=== PATIENT | male | born 1960 | race Caucasian/White ===

== ENCOUNTER → 2020-09-13 | Outpatient (CLI) | payer OTHER ==
--- NOTE | 2020-09-13 17:37 | CONS ---
CONSULTATION DATE OF SERVICE: 09/13/2020. INDICATIONS: A 60-year-old gentleman has been evaluated in [facility] for obstructive sleep apnea- hypopnea syndrome. HISTORY OF PRESENT ILLNESS/SLEEP WAKE EVALUATION: The patient had been diagnosed with obstructive sleep apnea in November of 2019 at another institution, then he received his CPAP unit and he continues to use his CPAP equipment since that time. His sleep schedule is from 10 p.m. to 6 a.m. on weekdays and from 10:30 p.m. to 7:30 a.m. on weekends. No problems with falling asleep. No TV in bedroom. I checked his CPAP unit, pressure is 18 cm of water, usage is 30/30 nights for more than 4 hours with average usage is 6.1 hours per night. Leak is 12 L/minute which is mild. Apnea-hypopnea index is only 0.3, absolutely perfect. I checked also for the 6 months compliance, it is 176/180 nights for more than 4 hours, which is again indicating great compliance. The patient is using a full face white ____ large size mask. He sometimes feels that there is a leak from his mask. The patient wakes up from sleep once with nocturia. No history of hypnagogic hallucinations, sleep paralysis or cataplexy. [place] Sleepiness Scale is 10, which is borderline. PAST MEDICAL HISTORY: Positive for hypertension, hypothyroidism, allergies. PAST SURGICAL HISTORY: Appendectomy, bilateral knee arthroscopic surgery. MEDICATIONS: Hydralazine 2 mg once a day, enalapril 10 mg 3 times a day, levothyroxine 75 mcg once a day, Triamterene Dyazide 3.5-25 5 times per week, montelukast 10 mg as needed. FAMILY HISTORY: Cancer, stroke last month, heart problems. REVIEW OF SYSTEMS: Awakenings from sleep. PHYSICAL EXAMINATION: GENERAL: gentleman without distress. VITAL SIGNS: BP 161/101, HR 104, RR 15, height 5 feet 11 inches, weight 292, body mass index 40.7, temperature 98.0, oxygen saturation at room air 97%. Oropharynx low position of soft palate. NECK is wide; 18 inches in circumference. LUNGS: Clear to percussion and to auscultation. Good air exchange. No wheezing or rhonchi. HEART: S1, S2 regular. No murmurs, gallops, or rubs. ABDOMEN: Soft and nontender. Bowel sounds are present. No organomegaly appreciated. Obese. EXTREMITIES: No clubbing or cyanosis. ENTRY LEVEL RECEPTIONIST: Awake, alert, and oriented X3. Cranial nerves 2 to 7 intact. There is no fasciculation or atrophy. noted. No focal deficits observed. IMPRESSION: 1. Obstructive sleep apnea-hypopnea syndrome diagnosed in November 2019 in another institution. The patient demonstrated great compliance with CPAP treatment, benefitting from treatment, normal respiration on CPAP. 2. Low position of soft palate, wide neck. 3. Obesity BMI 40.7. 4. Hypertension. 5. Hypothyroidism. 6. Allergy. 7. Status post bilateral knee arthroscopic surgery. 8. Status post appendectomy. 9. 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 PLAN: 1. Continue usage of CPAP every night for the whole night. 2. For more comfort for the patient I changed the CPAP unit to automatic regimen with range of pressure of 5-18. 3. Losing weight. 4. Sleep hygiene with regular time in bed for at least 7.5 to 8 hours. 5. Prescription for all necessary CPAP supplies including 12 full face mask, tube tip filters. 6. Precautions related to driving. No driving if feeling sleepiness. Patient is aware about civil and criminal liability for unsafe driving. 7. We will get results of sleep study, which was done previously in another institution. 8. Follow-up visit in 6 months or earlier if patient has any problems. Thank you very much for referring this patient for consultation. Chavo Dawson MD, PhD, FAASM Diplomat of [place] [employer] Sleep Medicine Board of [place] [employer] [facility] MMODL / IJN: [id number] /
== END ==
LOC: SLEEP 14:16
PROVIDERS: ATTEND Internal Medicine
DX: G47.33 Obstructive sleep apnea (adult) (pediatric) (principal); E66.9 Obesity, unspecified; I10 Essential (primary) hypertension; E03.9 Hypothyroidism, unspecified; Z68.41 Body mass index [BMI] 40.0-44.9, adult; T78.40XA Allergy, unspecified, initial encounter; Z79.899 Other long term (current) drug therapy; Z96.653 Presence of artificial knee joint, bilateral
CPT/HCPCS: 99202

== ENCOUNTER 2021-02-05 10:04 | Day surgery (SDC) | payer OTHER ==
[2021-02-01 14:37] VITALS: BMI 38.2
[~2021-02-05 10:04] MED LIST: SODIUM CHLORIDE 0.9% 1,000 ML IV SCH
[2021-02-05 10:59] VITALS: RESP 16; TEMP 97.2
[2021-02-05 11:47] LABS: African American GFR (CKD) >90 (>60 ml/min/1.73 sqM); Anion Gap 7 mmol/L; Blood Urea Nitrogen 23 mg/dL (9-20); Calcium 9.1 mg/dL (8.4-10.2); Carbon Dioxide 27 mmol/L (22-30); Chloride 105 mmol/L (98-107); Glucose 92 mg/dL (74-99); Non-African American GFR(CKD) 86 (>60 ml/min/1.73 sqM); Potassium 3.9 mmol/L (3.5-5.1); Sodium 139 mmol/L (137-145)
[2021-02-05] MEDS ORDERED: PROPOFOL 10 MG/ML 20 ML VIAL IV ONE (12:14)
[2021-02-05] MEDS ORDERED: LIDOCAINE 1% INJ 10MG/ML (20 ML MDV) ONE (12:14)
--- NOTE | 2021-02-05 14:17 | PCN ---
PROCEDURE NOTE CARDIOVERSION: DATE OF SERVICE: 02/05/2021 PERFORMING PHYSICIAN: Sterling Mejía M.D. PROCEDURE PERFORMED: Successful cardioversion of atrial fibrillation to normal sinus mechanism using 150 joules on second attempt. INDICATION: Persistent atrial fibrillation. COMPLICATIONS: None. LEVEL OF SEDATION: Sedation was performed using propofol with AUCTIONEER ART in the room. PROCEDURE DESCRIPTION: After obtaining informed consent, the patient was brought to the cardioversion/recovery suite. Pulse oximetry and heart rate monitors were attached to the patient. Subsequently the patient was sedated using propofol. Then cardioversion was attempted initially using 75 joules and subsequently using 150 joules, successfully cardioverting the patient to normal sinus mechanism. The procedure was completed without any complication. CONCLUSION: Successful cardioversion of atrial fibrillation to normal sinus mechanism using 150 joules on second attempt. MMODL / IJN: [id number] /
[2021-02-05 17:00] VITALS: BP 153/77; PULSE 84
== END 2021-02-05 14:40 | disposition home or self-care (01) ==
LOC: CATHCVL 10:04
PROVIDERS: ATTEND Internal Medicine Interventional Cardiology
DX: I48.19 Other persistent atrial fibrillation (principal); I10 Essential (primary) hypertension; G47.33 Obstructive sleep apnea (adult) (pediatric); J45.909 Unspecified asthma, uncomplicated; E66.9 Obesity, unspecified; I49.5 Sick sinus syndrome; I34.0 Nonrheumatic mitral (valve) insufficiency; E07.9 Disorder of thyroid, unspecified; Z68.41 Body mass index [BMI] 40.0-44.9, adult; Z20.822 Contact with and (suspected) exposure to COVID-19; Z79.899 Other long term (current) drug therapy
CPT/HCPCS: 92960; 80048; 87635; J2001; J2704

== ENCOUNTER 2021-02-12 07:11 | Day surgery (SDC) | payer OTHER ==
[2021-02-09 09:11] VITALS: BMI 38.9
[~2021-02-12 07:11] MED LIST changes: +ALPRAZolam 0.25 MG TAB PO PRN; +ALPRAZolam 0.5 MG TAB PO PRN; +ASPIRIN 325 MG TAB PO STA; +HEPARIN SODIUM,PORCINE 10,000 UNIT in SODIUM CHLORIDE 0.9% 1,000 ML IRRIGATION PRN; +HEPARIN SODIUM,PORCINE 2,500 UNIT in SODIUM CHLORIDE 0.9% 250 ML IRRIGATION PRN; +NITROGLYCERIN SL TABS 0.4 MG TAB SUBLINGUAL PRN; -SODIUM CHLORIDE 0.9% 1,000 ML IV SCH
[2021-02-12] MEDS: SODIUM CHLORIDE 0.9% 1,000 ML in EMPTY BAG 1 BAG IV SCH ×3 (07:42→20:42)
[2021-02-12 07:47] LABS: Basophils # (A) 0.1 k/uL (0-0.2); Basophils % (A) 1 %; Eosinophils # (A) 0.3 k/uL (0-0.7); Eosinophils % (A) 4 %; HCT 49.9 % (39.0-53.0); HGB 16.4 gm/dL (13.0-17.5); Lymphocytes # (A) 1.7 k/uL (1.0-4.8); Lymphocytes % (A) 19 %; MCH 28.9 pg (25.0-35.0); MCHC 32.9 g/dL (31.0-37.0); MCV 87.8 fL (80.0-100.0); Mean Platelet Volume 7.8; Monocytes # (A) 0.7 k/uL (0-1.0); Monocytes % (A) 8 %; Neutrophils # (A) 5.5 k/uL (1.3-7.7); Neutrophils % (A) 64 %; Platelet Count 309 k/uL (150-450); RBC 5.69 m/uL (4.30-5.90); RDW 15.2 % (11.5-15.5); WBC 8.6 k/uL (3.8-10.6)
[2021-02-12] MEDS ORDERED: LIDOCAINE 1% INJ 10MG/ML (20 ML MDV) ONE (08:58)
[2021-02-12] MEDS ORDERED: VERAPAMIL 2.5 MG/ML 2 ML AMP ONE (08:58)
[2021-02-12] MEDS ORDERED: HEPARIN SODIUM 1,000 UN/ML (10ML VL) ONE (09:03)
[2021-02-12] MEDS ORDERED: MIDAZOLAM 2 MG/2 ML VIAL IV ONE (09:23)
[2021-02-12] MEDS ORDERED: LIDOCAINE 1% INJ 10MG/ML (20 ML MDV) SQ ONE (09:25)
[2021-02-12] MEDS ORDERED: VERAPAMIL SYRINGE (5 MG/10 ML) INTRAARTER ONE (09:28)
[2021-02-12] MEDS ORDERED: NITROGLYCERIN 1000MCG/10ML SYRINGE INTRACORON ONE (09:31)
[2021-02-12] MEDS ORDERED: CLOPIDOGREL 75 MG TAB ONE (09:45)
[2021-02-12] MEDS ORDERED: CLOPIDOGREL 75 MG TAB PO ONE (09:46)
[2021-02-12] MEDS ORDERED: IOPAMIDOL-370 125ML BTL INJ ONE (09:49)
[2021-02-12] MEDS ORDERED: RX INFO: IV CONTRAST WAS GIVEN 1 EACH MISC MISCELLANE PRN (09:57)
[2021-02-12] MEDS ORDERED: MAG HYDROX/AL HYDROX/SIMETH 30 ML CUP PO PRN (09:57)
[2021-02-12] MEDS ORDERED: NITROGLYCERIN SL TABS 0.4 MG TAB SUBLINGUAL PRN (09:57)
[2021-02-12] MEDS ORDERED: ATROPINE SULFATE 0.1 MG/ML 10ML SYRINGE IV PRN (09:57)
[2021-02-12] MEDS ORDERED: ZOLPIDEM 5 MG TAB PO PRN (09:57)
[2021-02-12] MEDS ORDERED: SODIUM CHLORIDE 0.9% 1,000 ML IV SCH (10:00)
--- NOTE | 2021-02-12 11:49 | CC ---
CARDIAC CATHETERIZATION REPORT DATE OF SERVICE: 02/12/2021 PERFORMING PHYSICIAN: Sterling Mejía M.D. PROCEDURES PERFORMED: 1. Selective right and left coronary angiogram. 2. Left heart catheterization. 3. Successful stenting of the proximal right coronary artery using a 3.25 x 18 mm Xience drug-eluting stent which was post-dilated using a 3.5 mm NC balloon with excellent angiographic results. INDICATION: This is a 60-year-old gentleman who was diagnosed recently with atrial fibrillation and was symptomatic. He underwent myocardial perfusion imaging stress test that was abnormal, showing reversibility, and in the light of that a heart catheterization was advised. APPROACH: Right radial artery. COMPLICATIONS: None. LEVEL OF SEDATION: Moderate, with sedation length of 26 minutes. PROCEDURE DESCRIPTION: After obtaining informed consent, the patient was brought to the cardiac slabbing machine operator. The right radial artery was cannulated using micropuncture technique. The micropuncture wire passed easily. Then I placed a 6-Kyrgyz sheath in the right radial artery. I gave the patient 2 mg of verapamil IA and a total of 10,000 units of heparin IV given intermittently with continuous ACT monitoring throughout the procedure. After that I did intervene on the RCA. Please see separate paragraph for that. SELECTIVE CORONARY ANGIOGRAM: 1. The RCA is a large-caliber vessel. It is a dominant vessel. The RCA proximally has a lesion that appeared to be in the range of 70% to 80% just distal to the bifurcation of the conus branch. The mid and distal RCA appeared to have mild disease only. 2. The left main has mild disease only. It bifurcates into LCX and LAD. 3. The LCX is a large-caliber vessel. It is a nondominant vessel. The LCX has mild diffuse disease. It gives rise to a large OM branch which appeared to have mild disease only as well. 4. The LAD. The proximal LAD appeared to have a lesion in the range of 40% to 50%. It was identified mostly on the MIRAMONTES caudal view. The LAD proximally gives rise to a large diagonal branch which seems to be angiographically normal. The mid and distal LAD appeared to have mild disease only. 5. HEMODYNAMICS: The LVEDP was 9 mmHg without significant gradient across the aortic valve. PERCUTANEOUS CORONARY INTERVENTION OF THE RIGHT CORONARY ARTERY: Anticoagulation was initiated and completed with heparin with continuous ACT monitoring. I did engage the RCA using JR4 guide. I did wire it using a run-through wire. Direct stenting was performed using a 3.25 x 18 mm Xience CHARLES where the stent was positioned under fluoroscopic guidance and deployed under 14 atmospheres for 20 seconds. Post- dilatation was performed using a 3.5 x 12 mm NC balloon. Final angiogram showed excellent angiographic results. The procedure was completed without any complication. CONCLUSION: 1. Severe disease involving the proximal right coronary artery. Successful stenting of the RCA was performed. 2. Intermediate disease involving the proximal LAD was identified on the MIRAMONTES caudal view. 3. Normal left-sided filling pressure. POST-PROCEDURE MANAGEMENT: Medical treatment and aggressive cholesterol control cardioversion. MMODL / IJN: [id number] /
[2021-02-12] MEDS: carvediloL 3.125 MG TAB PO SCH ×2 (12:00→20:41)
[2021-02-12] MEDS: TRIAMTERENE-HCTZ 37.5-25MG 1 EACH TAB PO SCH (12:00)
[2021-02-12] MEDS: lisinopriL 20 MG TAB PO SCH (20:20)
[2021-02-12] MEDS ORDERED: ATORVASTATIN 80 MG TAB PO SCH (21:00)
[2021-02-12] MEDS ORDERED: carvediloL 3.125 MG TAB PO SCH (21:00)
[2021-02-12] MEDS ORDERED: LEVOTHYROXINE 75 MCG TAB PO SCH (21:00)
[2021-02-12] MEDS ORDERED: DOXAZOSIN 1 MG TAB PO SCH (21:00)
[2021-02-13] MEDS: SODIUM CHLORIDE 0.9% 1,000 ML in EMPTY BAG 1 BAG IV SCH (04:14)
[2021-02-13 07:10] LABS: African American GFR (CKD) >90 (>60 ml/min/1.73 sqM); Non-African American GFR(CKD) 88 (>60 ml/min/1.73 sqM)
[2021-02-13 08:34] VITALS: BP 160/90; PULSE 59; RESP 18; TEMP 97.7
[2021-02-13] MEDS: lisinopriL 20 MG TAB PO SCH (08:37)
[2021-02-13] MEDS: TRIAMTERENE-HCTZ 37.5-25MG 1 EACH TAB PO SCH (08:38)
[2021-02-13] MEDS: carvediloL 3.125 MG TAB PO SCH (08:38)
[2021-02-13] MEDS ORDERED: CLOPIDOGREL 75 MG TAB PO SCH (09:00)
[2021-02-13] MEDS ORDERED: TRIAMTERENE-HCTZ 37.5-25MG 1 EACH TAB PO SCH (09:00)
--- NOTE | 2021-02-13 10:41 | P.DS ---
Providers Date of admission: February 122020 Attending physician: Sterling Mejía Consults: 02/12/21 09:57 Consult Physician Routine Consulting Provider: [facility] Consult Reason/Comments: Post Interventional patient Do you want consulting provider notified?: Already Contacted Primary care physician: Zhanna Salinas [facility] Course: This is a 60-year-old gentleman who was experiencing symptoms of shortness of breath and underwent myocardial perfusion imaging stress test and that came in to be abnormal showing reversibility. In the light of that the heart catheterization was advised. The heart catheterization revealed severe disease involving the RCA. He underwent successful stenting of the RCA with a good angiographic results. He was seen this morning. The right radial site is soft and nontender and without any bruises. The patient is going to be discharged home on triple therapy with decreasing the dose of. I'm going to follow-up with him in a week. Plan - Discharge Summary Discharge Rx Participant: No New Discharge Prescriptions: New Aspirin 81 mg PO DAILY #90 tab Atorvastatin [Lipitor] 80 mg PO DAILY #90 tab Clopidogrel Bisulfate [Plavix] 75 mg PO DAILY #90 tab Continue Enalapril [Vasotec] 20 mg PO BID Terazosin [Hytrin] 1 mg PO HS Levothyroxine Sodium [Synthroid] 75 mcg PO HS Triamterene/Hydrochlorothiazid [Triamterene-Hctz 37.5-25 mg Tb] 1 each PO DAILY Carvedilol [Coreg] 3.125 mg PO BID Changed Apixaban [Eliquis] 2.5 mg PO BID #0 Discharge Medication List Carvedilol [Coreg] 3.125 mg PO BID 02/01/21 [History] Enalapril [Vasotec] 20 mg PO BID 02/01/21 [History] Levothyroxine Sodium [Synthroid] 75 mcg PO HS 02/01/21 [History] Terazosin [Hytrin] 1 mg PO HS 02/01/21 [History] Triamterene/Hydrochlorothiazid [Triamterene-Hctz 37.5-25 mg Tb] 1 each PO DAILY 02/01/21 [History] Apixaban [Eliquis] 2.5 mg PO BID #0 02/13/21 [Rx] Aspirin 81 mg PO DAILY #90 tab 02/13/21 [Rx] Atorvastatin [Lipitor] 80 mg PO DAILY #90 tab 02/13/21 [Rx] Clopidogrel Bisulfate [Plavix] 75 mg PO DAILY #90 tab 02/13/21 [Rx] Follow up Appointment(s)/Referral(s): Sterling Mejía MD [STAFF PHYSICIAN] - 1 Week (APPOINTMENT MADE ON January @ 4:15PM AT THE [facility] LOCATION) Patient Instructions/Handouts: After Radial Heart Catheterization (GEN), Procedural Sedation (ED) Activity/Diet/Wound Care/Special Instructions: *NO LIFTING, PUSHING, OR PULLING ANYTHING OVER 5 POUNDS FOR 5 DAYS *NO DRIVING FOR 3 DAYS *YOU CAN SHOWER TOMORROW BUT DO NOT SUBMERSE YOUR PUNCTURE SITE IN WATER FOR A FEW DAYS TO PREVENT INFECTION - SO NO TUB BATHS, POOLS, HOT TUBS, DISHES....ETC. *ANY SIGNS OF BLEEDING (HARDNESS, SWELLING, OR EXCESSIVE BRUISING) HOLD DIRECT PRESSURE ON YOUR PUNCTURE SITE AND COME TO THE NEAREST EMERGENCY ROOM TO GET YOUR PUNCTURE SITE LOOKED AT - DO NOT DRIVE YOURSELF! EITHER CALL EMS OR HAVE SOMEONE DRIVE YOU!
== END 2021-02-13 11:04 | disposition home or self-care (01) ==
LOC: CATHCVL 07:11 → 6NMEDSUR 15:00 → CATHCVL 02-13 11:04
PROVIDERS: ATTEND Internal Medicine Interventional Cardiology
DX: R94.39 Abnormal result of other cardiovascular function study (principal); I48.91 Unspecified atrial fibrillation; Z20.822 Contact with and (suspected) exposure to COVID-19
CPT/HCPCS: 93458; 82565; 85025; 87635; C9600; C1887; C1769; C1894; C1725; C1874; J2250; J2001; J1644 ×2; Q9967

== ENCOUNTER → 2021-02-26 | Outpatient (CLI) | payer OTHER ==
[2021-02-26 15:55] LABS: HCT 40.5 % (39.0-53.0); HGB 13.6 gm/dL (13.0-17.5); MCH 29.3 pg (25.0-35.0); MCHC 33.6 g/dL (31.0-37.0); MCV 87.1 fL (80.0-100.0); Mean Platelet Volume 8.5; Platelet Count 236 k/uL (150-450); RBC 4.65 m/uL (4.30-5.90); WBC 7.4 k/uL (3.8-10.6)
== END | disposition home or self-care (01) ==
LOC: LABPAT 14:27
PROVIDERS: ATTEND Internal Medicine Interventional Cardiology
DX: Z01.812 Encounter for preprocedural laboratory examination (principal); I48.11 Longstanding persistent atrial fibrillation
CPT/HCPCS: 36415; 80051; 82565; 84520; 85027

== ENCOUNTER → 2021-03-05 | Outpatient (CLI) | payer OTHER | END | disposition home or self-care (01) | LOC: LABPAT 08:41 | PROVIDERS: ATTEND Internal Medicine Interventional Cardiology | DX: Z20.822 Contact with and (suspected) exposure to COVID-19 (principal) | CPT/HCPCS: U0003; C9803 ==

== ENCOUNTER 2021-03-07 06:29 | Day surgery (SDC) | payer OTHER ==
[2021-02-28 11:31] VITALS: BMI 39.2
[~2021-03-07 06:29] MED LIST changes: -ALPRAZolam 0.25 MG TAB PO PRN; -ALPRAZolam 0.5 MG TAB PO PRN; -ASPIRIN 325 MG TAB PO STA; -HEPARIN SODIUM,PORCINE 10,000 UNIT in SODIUM CHLORIDE 0.9% 1,000 ML IRRIGATION PRN; -HEPARIN SODIUM,PORCINE 2,500 UNIT in SODIUM CHLORIDE 0.9% 250 ML IRRIGATION PRN; +LACTATED RINGERS 1,000 ML IV SCH; +LIDOCAINE 1% (10MG/ML) FOR IV START INTRADERMA PRN; -NITROGLYCERIN SL TABS 0.4 MG TAB SUBLINGUAL PRN; +SODIUM CHLORIDE 0.9% 1,000 ML IV SCH
[2021-03-07] MEDS ORDERED: SODIUM CHLORIDE 0.9% 500 ML 500 ML IV ONE (06:43)
[2021-03-07 07:01] VITALS: RESP 16; TEMP 98.2
[2021-03-07] MEDS ORDERED: PROPOFOL 10 MG/ML 20 ML VIAL IV ONE (07:41)
[2021-03-07 09:13] VITALS: PULSE 64
[2021-03-07 09:39] VITALS: BP 160/77
--- NOTE | 2021-03-07 11:21 | ECHOT ---
TRANSESOPHAGEAL ECHOCARDIOGRAM DATE OF SERVICE: 03/07/2021 PERFORMING PHYSICIAN: Sterling Mejía M.D. PROCEDURE PERFORMED: Transesophageal echocardiogram. INDICATION: Rule out left atrial appendage thrombus before cardioversion. COMPLICATIONS: None. LEVEL OF SEDATION: The procedure was performed using propofol with TRAINING PROJECT MANAGER in the room. PROCEDURE DESCRIPTION: After obtaining informed consent, the patient was brought to the recovery room. Pulse oximetry and heart rate monitors were attached to the patient. Subsequently the patient was turned into left lateral position. The transesophageal echocardiogram probe was advanced through the bite guard to the mid esophagus, where 2D echocardiogram images as well as color Doppler images of various cardiac structures were obtained. Particular attention was paid to the left atrial appendage. The procedure was completed without any complication. FINDINGS: The left ventricular dimension appeared to be within normal limits. The ejection fraction appeared to be mildly impaired with EF around 45%. The right ventricle appeared to be mildly dilated. The left atrium and right atrium are mildly dilated. Left atrial appendage appeared to be free from any thrombus. The interatrial septum appeared to have evidence of atrial septal defect, which seems to be a second atrial septal defect. The aortic valve is a trileaflet valve without stenosis with mild insufficiency. There was mild to moderate mitral regurgitation and mild to moderate tricuspid regurgitation seen. CONCLUSION: 1. Mildly impaired LV function with EF between 45% and 50%. 2. Mildly dilated right ventricle with normal function. 3. Trileaflet aortic valve without stenosis with mild insufficiency. 4. Thickened mitral valve leaflets with mild to moderate MR. 5. Mild to moderate tricuspid regurgitation. 6. Second atrial septal defect with evidence of [id number] shunt. 7. No evidence of pericardial effusion. MMODL / IJN: [id number] /
--- NOTE | 2021-03-07 11:30 | PCN ---
PROCEDURE NOTE CARDIOVERSION: DATE OF SERVICE: 03/07/2021 PERFORMING PHYSICIAN: Sterling Mejía M.D. PROCEDURE PERFORMED: Successful cardioversion of atrial fibrillation to normal sinus mechanism using 150 joules on first attempt. DESCRIPTION: After a transesophageal echocardiogram was performed and left atrial appendage thrombus was ruled out, we decided to pursue cardioversion. The patient cardioverted from atrial fibrillation to normal sinus mechanism using 150 joules on first attempt. MMODL / IJN: [id number] /
== END 2021-03-07 09:40 | disposition home or self-care (01) ==
LOC: CATHCVL 06:29
PROVIDERS: ATTEND Internal Medicine Interventional Cardiology
DX: I48.19 Other persistent atrial fibrillation (principal); I25.10 Atherosclerotic heart disease of native coronary artery without angina pectoris; I10 Essential (primary) hypertension; E78.5 Hyperlipidemia, unspecified; R94.39 Abnormal result of other cardiovascular function study; E66.9 Obesity, unspecified; Z68.39 Body mass index [BMI] 39.0-39.9, adult; G47.33 Obstructive sleep apnea (adult) (pediatric); Z95.5 Presence of coronary angioplasty implant and graft; Z79.01 Long term (current) use of anticoagulants; Z79.02 Long term (current) use of antithrombotics/antiplatelets; Z79.82 Long term (current) use of aspirin; Z79.890 Hormone replacement therapy; Z79.899 Other long term (current) drug therapy; E07.9 Disorder of thyroid, unspecified; Z90.49 Acquired absence of other specified parts of digestive tract; Z91.012 Allergy to eggs; Z91.011 Allergy to milk products; Z91.018 Allergy to other foods
CPT/HCPCS: 93312; 93320; 93325; 92960; J2704; 93005

== ENCOUNTER → 2021-03-15 | Outpatient (CLI) | payer OTHER ==
--- NOTE | 2021-03-15 14:56 | SFUN ---
SLEEP CENTER FOLLOW UP NOTE DATE OF SERVICE: 03/15/2021 61 -year-old gentleman has been followed in Sleep Center for treatment of obstructive sleep apnea-hypopnea syndrome. The patient continues to use his CPAP equipment every night for the whole night, sleeps well. Getting his CPAP supplies in time and changing his air filter once a month. I checked his CPAP unit. Range of the pressure 5-18, average pressure 17.7, usage 30/30 nights and 29/30 nights more than 4 hours, average 7.1 hours per night. Great compliance. Leak is 4 L/minute which is normal. Apnea-hypopnea index 0.5 which is perfect. [place] Sleepiness Scale today is 5, which is in normal range. MEDICATIONS: Amiodarone 100 mg once a day, Eliquis 2.5 mg 2 tablets a day, Lipitor 80 mg once a day, Plavix 75 mg once a day, Coreg 3.215 mg 2 tablets a day, enalapril 20 mg twice a day, terazosin 2 mg once a day. Triamterene hydrochlorothiazide once a day. PHYSICAL EXAMINATION: GENERAL: Patient in no distress. BP 161/88, HR 72, RR 16, weight 287.2 pounds, height 5 feet 11 inches, temperature 97.7, oxygen saturation at room air 98%. Oropharynx: Low position of soft palate. NECK: Supple, no JVD. Thyroid is not palpable. LUNGS: Clear to percussion and to auscultation. Good air exchange. No wheezing or rhonchi. HEART: S1, S2 regular. No murmurs, gallops, or rubs. ABDOMEN: Obese. Soft and nontender. Bowel sounds are present. No organomegaly appreciated. EXTREMITIES: No clubbing or cyanosis. REED OR WIND INSTRUMENT TUNER: Awake, alert, and oriented X3. Cranial nerves 2 to 7 intact. There is no fasciculation or atrophy. noted. No focal deficits observed. IMPRESSION: 1. Obstructive sleep apnea-hypopnea syndrome. Patient demonstrated practically 100% compliance with treatment. Normal respiration on CPAP, benefitting from treatment. 2. Obesity. 3. Hypertension. 4. Hypothyroidism. 5. Allergies. 6. Status post bilateral arthroscopic knee surgery. 7. Status post appendectomy. 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 Patient will continue to use PAP equipment every night for the whole night. 2. Sleep hygiene with regular time in bed for at least 7-1/2 to 8 hours. 3. Precautions related to driving. No driving if feeling sleepiness. Patient is aware about civil and criminal liability for unsafe driving and promised to follow recommendations. 4. I will maintain all necessary prescription for PAP supplies including mask, tube, filters. 5. Watching weight. 6. Follow-up visit in 6 months or earlier if patient has any problems. Thank you very much for allowing me to participate in management of your patient. Sincerely, Chavo Dawson MD, PhD, FAASM Diplomat of [place] [employer] Sleep Medicine Board of [place] [employer] Clean In Places Operator of [facility] MMODL / IJN: [id number] /
== END ==
LOC: SLEEP 13:03
PROVIDERS: ATTEND Internal Medicine
DX: G47.33 Obstructive sleep apnea (adult) (pediatric) (principal); E66.9 Obesity, unspecified; I10 Essential (primary) hypertension; E03.9 Hypothyroidism, unspecified; T78.40XD Allergy, unspecified, subsequent encounter; Z90.49 Acquired absence of other specified parts of digestive tract; Z98.890 Other specified postprocedural states; Z79.899 Other long term (current) drug therapy; Z91.011 Allergy to milk products; Z91.018 Allergy to other foods; Z91.012 Allergy to eggs

== ENCOUNTER → 2021-06-22 | Outpatient (CLI) | payer OTHER ==
[2021-06-22 14:53] LABS: ALT 33 U/L (10-49); AST 32 U/L (14-35); African American GFR (CKD) 77.8 (60.0-200.0); Albumin 4.4 g/dL (3.8-4.9); Albumin/Globulin Ratio 1.49 (1.60-3.17); Alkaline Phosphatase 71 U/L (41-126); BUN/Creat Ratio 13.71 Ratio (12.00-20.00); Blood Urea Nitrogen 15.9 mg/dL (9.0-27.0); Calcium 9.1 mg/dL (8.7-10.3); Chloride 102 mmol/L (96-109); Chol/HDL Ratio 1.91 Ratio; Creatine Kinase 425 U/L (35-257); Glucose 103 mg/dL (70-110); LDL Cholesterol,Calculated 28.1 mg/dL (0.0-131.0); Magnesium 2.9 mg/dL (1.5-2.4); Non-African American GFR(CKD) 67.1 (60.0-200.0); Potassium 4.2 mmol/L (3.5-5.5); Sodium 138 mmol/L (135-145); Total Protein 7.4 g/dL (6.2-8.2); VLDL Calculation 15.84 mg/dL (5.00-40.00)
== END | disposition home or self-care (01) ==
LOC: LABWHC1 08:52
PROVIDERS: ATTEND Family Medicine
DX: I10 Essential (primary) hypertension (principal); I48.0 Paroxysmal atrial fibrillation; E78.2 Mixed hyperlipidemia; E03.9 Hypothyroidism, unspecified; R73.03 Prediabetes
CPT/HCPCS: 36415; 80053; 80061; 82550; 83036; 83735; 84439; 84443

== ENCOUNTER → 2021-06-22 | Outpatient (CLI) | payer OTHER ==
[2021-06-22 14:31] LABS: Basophils # (A) 0.08 X 10*3/uL (0.00-0.10); Basophils % (A) 1.1 %; Eosinophils # (A) 0.19 X 10*3/uL (0.04-0.35); Eosinophils % (A) 2.7 %; HCT 42.6 % (39.6-50.0); HGB 13.6 g/dL (13.0-17.0); Immature Grans, Automated 0.3 %; Lymphocytes # (A) 1.11 X 10*3/uL (0.90-5.00); Lymphocytes % (A) 15.9 %; MCH 28.2 pg (27.0-32.0); MCHC 31.9 g/dL (32.0-37.0); MCV 88.2 fL (80.0-97.0); Monocytes # (A) 0.63 X 10*3/uL (0.20-1.00); NRBC Per 100 WBC 0 /100 WBCS (0.0-0.0); Neutrophils # (A) 4.94 X 10*3/uL (1.80-7.70); Platelet Count 258 X 10*3/uL (140-440); RBC 4.83 X 10*6/uL (4.40-5.60); RDW 14.6 % (11.5-14.5); WBC 6.97 X 10*3/uL (4.50-10.00)
[2021-06-22 14:34] LABS: Anion Gap 11.1 mmol/L (10.00-18.00); Blood Urea Nitrogen 15.7 mg/dL (9.0-27.0); Carbon Dioxide 26.3 mmol/L (20.0-27.5); Non-African American GFR(CKD) 70.8 (60.0-200.0); Potassium 4.2 mmol/L (3.5-5.5)
== END | disposition home or self-care (01) ==
LOC: LABPAT 08:48
PROVIDERS: ATTEND Internal Medicine Clinical Cardiac Electrophysiology
DX: Z01.812 Encounter for preprocedural laboratory examination (principal); I48.19 Other persistent atrial fibrillation
CPT/HCPCS: 80051; 82565; 84520; 85025

== ENCOUNTER 2021-07-02 11:08 | Day surgery (SDC) | payer OTHER ==
[2021-06-29 12:52] VITALS: BMI 38.0
[~2021-07-02 11:08] MED LIST changes: -LIDOCAINE 1% (10MG/ML) FOR IV START INTRADERMA PRN
[2021-07-02] MEDS ORDERED: ONDANSETRON 4 MG/2 ML VIAL ONE (13:31)
[2021-07-02] MEDS ORDERED: ePHEDrine 50 MG/ML 1 ML VIAL ONE (13:31)
[2021-07-02] MEDS ORDERED: ROCURONIUM 10 MG/ML (5 ML VIAL) IV ONE (13:31)
[2021-07-02] MEDS ORDERED: PROPOFOL 10 MG/ML 20 ML VIAL IV ONE (13:31)
[2021-07-02] MEDS ORDERED: MIDAZOLAM 2 MG/2 ML VIAL ONE (13:31)
[2021-07-02] MEDS ORDERED: LIDOCAINE 2% INJ 20 MG/ML (2 ML VIAL) ONE (13:31)
[2021-07-02] MEDS ORDERED: fentaNYL (PF) 50 MCG/ML 2 ML AMP ONE (13:31)
[2021-07-02] MEDS ORDERED: SUCCINYLCHOLINE CHLORIDE VIAL 200 MG/10 ML VIAL IV ONE (13:31)
[2021-07-02] MEDS ORDERED: GLYCOPYRROLATE 0.2 MG/ML 2 ML VIAL ONE (13:31)
[2021-07-02] MEDS ORDERED: NEOSTIGMINE 1 MG/ML 10 ML VIAL ONE (13:31)
[2021-07-02] MEDS ORDERED: ISOPROTERENOL 250 MCG/1.25 ML SYR IV ONE (13:31)
[2021-07-02] MEDS ORDERED: HEPARIN SODIUM,PORCINE 10,000 UNIT/ML 1 ML VIAL ONE (13:31)
[2021-07-02] MEDS ORDERED: LIDOCAINE 1% INJ 10MG/ML (30 ML VIAL-PF) SQ ONE (14:25)
[2021-07-02] MEDS ORDERED: HEPARIN SOD,PORK IN 0.45% NACL 25,000 UNIT in 0.45% NACL 1 250ML.BAG IV ONE (14:43)
[2021-07-02] MEDS ORDERED: HEPARIN SODIUM (1,000 UNIT/ML) 1,000 UNIT in SODIUM CHLORIDE 0.9% 1,000 ML IRRIGATION ONE (16:22)
[2021-07-02] MEDS ORDERED: IOPAMIDOL-370 100ML BTL INJ ONE (17:00)
[2021-07-02] MEDS ORDERED: LACTATED RINGERS 1,000 ML IV ONE (17:02)
[2021-07-02] MEDS ORDERED: ACETAMINOPHEN TAB 325 MG TAB PO PRN (18:08)
--- NOTE | 2021-07-02 18:18 | P.PRLE ---
RE: Sidney French Dear Zhanna Sidney French underwent an A. fib ablation with pulmonary vein isolation, linear ablation in the left atrial roof, linear ablation of the left atrium se ptum Bile mapping below the left inferior pulmonary vein, in the region of the left inferior ganglia plexus, there was organizational atrial fibrillation and then abrupt termination 70 lesions were applied around this successful site Following that I gave him Isuprel to see if he was inducible once again but he was not This is an excellent result for this patient especially since intracardiac echo revealed thickened posterior pericardium behind the left atrium and the left ventricle With exudative thick fluid behind the left atrium consistent with an old viral pericarditis probably At this time of given colchicine for 2 weeks this pericarditis may have exacerbated his atrial fibrillation He will continue anticoagulation and his cardiac medications and will follow with you and Dr. Acevedo as before Thank you for entrusting me with the care of the patient Warm regards Sincerely Chang Espinoza
--- NOTE | 2021-07-02 18:39 | P.EPPROC ---
- EP Procedure Note Electrophysiology Procedure Note: PROCEDURE A. fib ablation with termination of atrial fibrillation at the left inferior ganglionic plexus DIAGNOSIS Persistent Atrial fibrillation, symptomatic, refractory to therapy Subacute/chronic pericarditis, exudative, evident on intracardiac echo RESULT No left atrial appendage mass seen on intracardiac echo Thickened posterior pericardial wall with fibrinous material behind the left atrium Successful pulmonary vein isolation of all veins using cryo-ablation Successful linear ablation of left atrial septum Successful linear ablation in the left atrial roof Successful termination of atrial fibrillation in the region of the left inferior ganglionic plexus Long postconversion pause Complete entrance block in all 4 veins confirmed No evidence for phrenic nerve injury Esophageal deflection YES , to avoid cryo-balloon outside the right inferior pulmonary vein PROCEDURE DETAILS Patient was brought to the EP lab in a fasting state after obtaining written informed consent. Procedure performed under general anesthesia Esophagus was intubated. Esophageal temperature monitoring with circa catheter. Esophageal deflection with an endoscope to avoid hypothermia of the esophagus. After initial muscle relaxant use, muscle relaxants were not given thereafter in order to assess phrenic nerve during procedure. Patient prepped and draped as per protocol Cryo ablation-set up with standard preparation of the cryoablation tools done. Femoral Venous access obtained on the right and left groins and sheaths placed Diagnostic catheters for the high right atrium, phrenic nerve stimulation and pacing, His bundle, coronary sinus placed Intracardiac echo catheter placed. Long sheath placed in the right atrium Left and right transseptal catheterization performed under intracardiac echo guidance. Intravenous heparin with aCT above 300 Later, catheter positioning and balloon positioning in the left atrium and pulmonary veins, under intracardiac echo guidance including right middle pulmonary vein Diagnostic EP study with coronary sinus pacing and recording Baseline measurements: Sinus cycle length 880 ms, NC interval 175, QRS 155 and QT 460 ms 878 and HV 60 Sinus node recovery times at 500 ms was 866 ms Normal corrected sinus node recovery time AV node Wenckebach block 240 ms, underlying right bundle branch block morphology Transseptal catheterization performed RA pressure 18/7/13 LA pressure 24/6/16 Transseptal catheterization performed with standard sheath. The cryoablation sheath was then placed with an over the wire exchange without any acute complications. The cryoablation balloon was placed in the office of each pulmonary vein and all 4 pulmonary veins were isolated. IV dye was injected to confirm occlusion. Goal: achieve complete occlusion of the pulmonary vein, achieve -30 degrees C at 30 seconds and achieve -40 degrees C at 60 seconds and a time to effect of less than 60 seconds. If not, the balloon was repositioned to obtain this result After completion of Cryoblation with durations from 180-240 seconds, entrance block was confirmed with the Attain circular catheter in a roving fashion around the antrum of the pulmonary veins Phrenic nerve pacing was performed from the SVC, right innominate vein area and diaphragm voltage was monitored. Diaphragmatic contractions were also monitored manually for strength of contraction. At the end of the procedure the Achieve catheter was once again used to check for entrance block Phrenic nerve stimulation was performed to confirm diaphragmatic stimulation the end of the procedure Cine fluoroscopy was performed at the very end of the procedure to confirm movement of both diaphragms with inspiration and expiration Linear ablation was performed in the left atrial roof. A complete line of block was made that was confirmed with voltage mapping Complex fractionated electrograms in the posterior left atrial septum was sought and linear ablation was performed in the left atrial septum with some organization of atrial fibrillation RF ablation in termination of A. fib preceded by organization, in the region of the left inferior ganglionic plexus just below the left inferior pulmonary vein Height is Isuprel given thereafter. No atrial fibrillation induced At the end of the procedure the patient was extubated Venous sheaths were removed and hemostasis assured with a closure device PROCEDURES PERFORMED Diagnostic EP study CS pacing and recording Left and right transseptal catheterization 3-D mapping of the tachycardia Intracardiac echocardiography Pulmonary vein isolation with transseptal and comprehensive EPS, [id number] Drug infusion, +[id number] Left atrial roof line, +[id number] Linear ablation, left atrium, +[id number] RF ablation of focal source of atrial fibrillation with termination, +[id number]
[2021-07-02] MEDS ORDERED: ACETAMINOPHEN IV (For NPO) 1,000 MG in EMPTY BAG 1 BAG IVPB ONE (19:00)
[2021-07-02] MEDS ORDERED: ATORVASTATIN 80 MG TAB PO SCH (21:00)
[2021-07-02] MEDS ORDERED: DOXAZOSIN 2 MG TAB PO SCH (21:00)
[2021-07-02] MEDS ORDERED: carvediloL 6.25 MG TAB PO SCH (21:00)
[2021-07-02] MEDS ORDERED: LEVOTHYROXINE 75 MCG TAB PO SCH (21:00)
[2021-07-02] MEDS: APIXABAN 5 MG TAB PO SCH (21:29)
[2021-07-02] MEDS: lisinopriL 20 MG TAB PO SCH (21:29)
[2021-07-03 07:29] VITALS: BP 121/65; PULSE 65; RESP 18; TEMP 97.9
[2021-07-03] MEDS: APIXABAN 5 MG TAB PO SCH (08:29)
[2021-07-03] MEDS: lisinopriL 20 MG TAB PO SCH (08:29)
[2021-07-03] MEDS ORDERED: TRIAMTERENE-HCTZ 37.5-25MG 1 EACH TAB PO SCH (09:00)
[2021-07-03] MEDS ORDERED: carvediloL 12.5 MG TAB PO SCH (09:00)
[2021-07-03] MEDS ORDERED: CLOPIDOGREL 75 MG TAB PO SCH (09:00)
--- NOTE | 2021-07-03 12:08 | P.DS ---
Providers Attending physician: Chang Espinoza Primary care physician: [facility] Course: The patient 61-year-old male with past medical history of persistent atrial fibrillation refractory to antiarrhythmic therapy, who underwent extensive atrial fibrillation ablation on 07/02/[address] Espinoza. Overall the patient tolerated the procedure well, however the patient had continuous drainage from right surgical site overnight. This worsened this morning when he sat at the side of the bed. The patient was interviewed and examined lying comfortably in bed. Sanguinous drainage noted from right surgical site. Appears to be originating from superficial stitch, and not from venous access. No hematoma palpated. Stitch removed by Dr. Espinoza. Pressure was held by nurse practitioner for approximately 10 minutes. Pressure dressing was then applied. Reevaluation 2 hours after dressing change, and dressing is clean, dry, and intact. He did get up and ambulate around his room without issue. No chest pain or chest pressure. No difficulty breathing. GENERAL: Well-appearing, obese male in no acute distress. NECK: Supple without JVD or thyromegaly. LUNGS: Breath sounds clear to auscultation bilaterally. Respiration equal and unlabored. No wheezes, rales or rhonchi. HEART: Regular rate and rhythm without murmurs, rubs or gallops. S1 and S2 heard. EXTREMITIES: Normal range of motion, no edema. No clubbing or cyanosis. Peripheral pulses intact and strong. Mild bruising noted in the left groin. Sanguinous drainage from right procedure site initially. After 10 minutes of pressure followed by pressure dressing, dressing is clean, dry, and intact 2 hours after dressing change. IMPRESSION: Persistent atrial fibrillation, symptomatic and refractory to antiarrhythmic therapy Status post pulmonary vein isolation with linear left atrial roof, posterior left atrial septum, and left inferior ganglionic plexus RFA Chronic pericarditis PLAN: Keep pressure dressing in place tomorrow Patient may be discharged later today after ambulating Follow-up with primary hypercil core transformer assembler, Dr. Mejía, in 1 week I am dictating on behalf of Dr Chang Espinoza's history/physical and assessment/plan. Plan - Discharge Summary Discharge Rx Participant: No New Discharge Prescriptions: New Colchicine 0.6 mg PO DAILY #15 capsule Continue Enalapril [Vasotec] 20 mg PO BID Terazosin [Hytrin] 2 mg PO HS Atorvastatin [Lipitor] 80 mg PO HS carvediloL [Coreg] 6.25 mg PO HS Levothyroxine Sodium [Synthroid] 75 mcg PO HS Triamterene/Hydrochlorothiazid [Triamterene-Hctz 37.5-25 mg Tb] 1 each PO DAILY Carvedilol [Coreg] 12.5 mg PO QAM Clopidogrel Bisulfate [Plavix] 75 mg PO DAILY #90 tab Apixaban [Eliquis] 5 mg PO BID Discharge Medication List Carvedilol [Coreg] 12.5 mg PO QAM 02/01/21 [History] Enalapril [Vasotec] 20 mg PO BID 02/01/21 [History] Levothyroxine Sodium [Synthroid] 75 mcg PO HS 02/01/21 [History] Terazosin [Hytrin] 2 mg PO HS 02/01/21 [History] Triamterene/Hydrochlorothiazid [Triamterene-Hctz 37.5-25 mg Tb] 1 each PO DAILY 02/01/21 [History] Clopidogrel Bisulfate [Plavix] 75 mg PO DAILY #90 tab 02/13/21 [Rx] Atorvastatin [Lipitor] 80 mg PO HS 03/07/21 [History] Apixaban [Eliquis] 5 mg PO BID 06/29/21 [History] carvediloL [Coreg] 6.25 mg PO HS 06/29/21 [History] Colchicine 0.6 mg PO DAILY #15 capsule 07/02/21 [Rx] Follow up Appointment(s)/Referral(s): Sterling Mejía MD [STAFF PHYSICIAN] - 1 Week (Groin check in a week) Activity/Diet/Wound Care/Special Instructions: Post EP study - Ablation instructions 1. Keep access sites dry for 2 days. 2. No heavy lifting or straining for 2 days. 3. Avoid bending the hips repeatedly for 2 days. 4. You may go up and down stairs slowly Call if the following is noted 1. Bleeding, increasing swelling or pain at the access sites. 2. Increasing chest discomfort, especially upon taking a deep breath. 3. Increasing shortness of breath, at rest or with exertion. 4. Undue cough / phlegm 5. Difficulty or pain while swallowing. 6. Pain or change in color in the extremities. 7. Fever, chills, rigors. 8. Increasing headache or neurologic symptoms. 9. Dizziness, fainting, palpitations Continue ELIQUIS Continue cardiac medications Colchicine 0.6 mg by mouth daily for 2 weeks Discharge Disposition: HOME SELF-CARE
== END 2021-07-03 14:48 | disposition home or self-care (01) ==
LOC: CATHEP 11:08 → 6NMEDSUR 18:19 → CATHEP 07-03 14:48
PROVIDERS: ATTEND Internal Medicine Clinical Cardiac Electrophysiology
DX: I48.19 Other persistent atrial fibrillation (principal); I25.2 Old myocardial infarction; Z95.5 Presence of coronary angioplasty implant and graft; I49.3 Ventricular premature depolarization; I45.10 Unspecified right bundle-branch block; I10 Essential (primary) hypertension; Z20.822 Contact with and (suspected) exposure to COVID-19; E78.5 Hyperlipidemia, unspecified; Z79.01 Long term (current) use of anticoagulants; Z79.02 Long term (current) use of antithrombotics/antiplatelets; Z79.82 Long term (current) use of aspirin; Z79.890 Hormone replacement therapy; Z79.899 Other long term (current) drug therapy
CPT/HCPCS: 93623; 93656; 93657; 87635; C1894 ×2; C1769 ×4; C1760; C1730 ×2; C1759; C1733; C1766; C1732; J2250; J0330; J1644 ×3; J2710; J2405; J2001 ×2; J3010; J2704; Q9967

== ENCOUNTER → 2021-10-05 | Outpatient (CLI) | payer OTHER ==
[2021-10-05 14:42] LABS: HCT 39.5 % (39.6-50.0); HGB 13.3 g/dL (13.0-17.0); MCH 29.1 pg (27.0-32.0); MCHC 33.7 g/dL (32.0-37.0); MCV 86.4 fL (80.0-97.0); Mean Platelet Volume 10.8 fL (9.5-12.2); NRBC Per 100 WBC 0 /100 WBCS (0.0-0.0); Platelet Count 257 X 10*3/uL (140-440); RBC 4.57 X 10*6/uL (4.40-5.60); RDW 13.9 % (11.5-14.5); WBC 8.98 X 10*3/uL (4.50-10.00)
[2021-10-05 14:47] LABS: African American GFR (CKD) 94.3 (60.0-200.0); Anion Gap 10.7 mmol/L (10.00-18.00); Carbon Dioxide 26.7 mmol/L (20.0-27.5); Non-African American GFR(CKD) 81.4 (60.0-200.0)
== END | disposition home or self-care (01) ==
LOC: LABPAT 08:14
PROVIDERS: ATTEND Internal Medicine Interventional Cardiology
DX: Z01.812 Encounter for preprocedural laboratory examination (principal); I48.0 Paroxysmal atrial fibrillation; I25.10 Atherosclerotic heart disease of native coronary artery without angina pectoris; E78.1 Pure hyperglyceridemia
CPT/HCPCS: 80051; 82565; 84520; 85027

== ENCOUNTER → 2021-10-11 | Outpatient (CLI) | payer OTHER ==
--- NOTE | 2021-10-11 13:18 | P.PN ---
Subjective DATE: 10/11/2021 FOLLOW UP VISIT. Patient with obstructive sleep apnea hypopnea syndrome return to sleep center for follow-up visit. Information from previous visit have been reviewed. Patient is using PAP equipment every night for the whole night, getting PAP supplies in time. The patient does not have significant problems with the mask, PAP unit and humidification. [place] sleepiness scale is 6. I checked PAP unit. PAP unit pressure 5-18, average 17.9 cm H2O. Usage is 100 % for more then 4 hours, average 7.7 hours per night. Leak is 1 l/m, which is in acceptable range. Apnea Hypopnea Index is 0.3, which is normal. MEDICATIONS:1. Eliquis 5 mg twice a day 2. Atorvastatin 80 mg once a day 3. Plavix 75 mg once a day 4. Carvedilol 6.25 mg twice a day 5. enalapril 20 mg twice a day 6. Levothyroxine 75 g once a day 7. Colchicine 0.6 mg once a day 8. Singulair 10 mg once a day During physical exam: GENERAL: A pleasant patient without any distress. VITAL SIGNS: BP 148/58, HR 65, RR 16 , weight 296.2, temperature 97.2, oxygen saturation at room air 97 % . HEENT: PERRLA, EOMI.low position of soft palate . NECK: Supple. No JVD. LUNGS: Clear to percussion and to auscultation. Good air exchange. No wheezing or rhonchi. HEART: S1, S2 regular. ABDOMEN: Soft and nontender. Obese EXTREMITIES: No clubbing or cyanosis. LABORATORY WORKER: Awake, alert, and oriented x3. No focal deficit. Impressions: 1. Obstructive sleep apnea-hypopnea syndrome. Patient demonstrated great compliance with treatment, benefiting from treatment. 2. Hypertension. 3. Obesity. 4. Hypothyroidism. 5. ALLERGIES. 6. Status post appendectomy. 7. Status post bilateral arthroscopic knee surgery. 8. History of atrial septal defect, planning for surgical correction. 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 Plan: 1. Continue using PAP equipment every night for the whole night. 2. To change air filter at least 1-2 times per month. 3. PAP unit should stay lower then position of the head. 4. Advised patient to remove all remaining water from humidifier canister daily and make it dry after each usage. Refill canister with fresh distilled water before each usage. 5. Sleep hygiene with regular time in bed for at least 8 hours. 6. Precautions related to driving. No driving if feel any sleepiness. 7. I will maintain prescription for PAP supplies including mask, tube, filters. 8. Follow up visit in 6 months or earlier if patient has any problems. 9. Losing weight. Thank you very much for allowing me to participate in the management of your patient. Chavo Dawson MD, PhD, FAASM. Diplomat of [place] [employer], Sleep Medicine Board by [place] [employer] Steelworker of [facility] [place]
== END ==
LOC: SLEEP 10:49
PROVIDERS: ATTEND Internal Medicine
DX: G47.33 Obstructive sleep apnea (adult) (pediatric) (principal); I10 Essential (primary) hypertension; E66.9 Obesity, unspecified; E03.9 Hypothyroidism, unspecified; T78.40XA Allergy, unspecified, initial encounter; Z90.49 Acquired absence of other specified parts of digestive tract; Z98.890 Other specified postprocedural states; Z86.79 Personal history of other diseases of the circulatory system; Z79.01 Long term (current) use of anticoagulants; Z79.890 Hormone replacement therapy; Z99.89 Dependence on other enabling machines and devices; Z91.011 Allergy to milk products; Z91.012 Allergy to eggs; Z91.018 Allergy to other foods
CPT/HCPCS: 99212

== ENCOUNTER → 2021-11-22 | Outpatient (CLI) | payer OTHER ==
[2021-11-22 18:19] LABS: Basophils % (A) 1.1 %; Eosinophils # (A) 0.31 X 10*3/uL (0.04-0.35); Eosinophils % (A) 3.3 %; HCT 39.9 % (39.6-50.0); HGB 13.4 g/dL (13.0-17.0); Immature Grans, Automated 0.4 %; Lymphocytes # (A) 1.42 X 10*3/uL (0.90-5.00); Lymphocytes % (A) 15.1 %; MCH 28.3 pg (27.0-32.0); MCHC 33.6 g/dL (32.0-37.0); MCV 84.2 fL (80.0-97.0); Mean Platelet Volume 10.4 fL (9.5-12.2); Monocytes % (A) 9.6 %; NRBC Per 100 WBC 0 /100 WBCS (0.0-0.0); Neutrophils # (A) 6.65 X 10*3/uL (1.80-7.70); Neutrophils % (A) 70.5 %; Platelet Count 263 X 10*3/uL (140-440); RBC 4.74 X 10*6/uL (4.40-5.60); RDW 13.8 % (11.5-14.5); WBC 9.42 X 10*3/uL (4.50-10.00)
[2021-11-22 18:52] LABS: ALT 28 U/L (10-49); AST 33 U/L (14-35); African American GFR (CKD) 74.7 (60.0-200.0); Albumin 4.5 g/dL (3.8-4.9); Albumin/Globulin Ratio 1.67 (1.60-3.17); Alkaline Phosphatase 93 U/L (41-126); BUN/Creat Ratio 9.67 Ratio (12.00-20.00); Blood Urea Nitrogen 11.6 mg/dL (9.0-27.0); Calcium 9.4 mg/dL (8.7-10.3); Carbon Dioxide 28.4 mmol/L (20.0-27.5); Chloride 97 mmol/L (96-109); Chol/HDL Ratio 1.89 Ratio; Creatine Kinase 302 U/L (35-257); Globulin 2.7 g/dL (1.6-3.3); Glucose 88 mg/dL (70-110); LDL Cholesterol,Calculated 24.2 mg/dL (0.0-131.0); Magnesium 2.2 mg/dL (1.5-2.4); Non-African American GFR(CKD) 64.4 (60.0-200.0); Potassium 4.3 mmol/L (3.5-5.5); Sodium 136 mmol/L (135-145); Total Protein 7.2 g/dL (6.2-8.2); VLDL Calculation 16.74 mg/dL (5.00-40.00)
[2021-11-22 18:56] LABS: Vitamin B12 >2000.0 pg/mL (200.0-944.0)
== END | disposition home or self-care (01) ==
LOC: LABWHC1 11:02
PROVIDERS: ATTEND Family Medicine
DX: I12.9 Hypertensive chronic kidney disease with stage 1 through stage 4 chronic kidney disease, or unspecified chronic kidney disease (principal); N18.2 Chronic kidney disease, stage 2 (mild); E78.2 Mixed hyperlipidemia; N40.0 Benign prostatic hyperplasia without lower urinary tract symptoms; I48.0 Paroxysmal atrial fibrillation; R73.03 Prediabetes; E53.8 Deficiency of other specified B group vitamins; E55.9 Vitamin D deficiency, unspecified
CPT/HCPCS: 36415; 80053; 80061; 82306; 82550; 82607; 83036; 83735; 84153; 84439; 84443; 85025

== ENCOUNTER 2022-06-14 20:41 | Emergency (ER) | payer OTHER ==
[2022-06-14 20:47] VITALS: TEMP 98.4
--- NOTE | 2022-06-14 21:47 | XR ---
EXAMINATION TYPE: XR toes LT DATE OF EXAM: 06/14/2022 COMPARISON: NONE HISTORY: injury great toe TECHNIQUE: 3 views of the left great toe submitted FINDINGS: Comminuted fracture involving the subungual tuft of the left great toe with extension into the lateral base. Displacement less than 1 mm. Soft tissue swelling noted. No additional fractures no jacob. IMPRESSION: As above
--- NOTE | 2022-06-14 22:20 | ED ---
Lower Extremity Injury HPI - General Chief Complaint: Extremity Injury, Lower Stated Complaint: Left toe injury Time Seen by Provider: 06/14/22 21:08 Source: patient Mode of arrival: wheelchair Limitations: no limitations - History of Present Illness Initial Comments: Patient is a 62-year-old male presenting with chief complaint of left toe pain. Patient states that earlier this evening he dropped a heavy object toe, there was bleeding a great amount of pain. Patient is having swelling and pain with range of motion and weightbearing. No numbness or tingling. The toenail has fallen completely off. Patient is on eliquis. Bleeding well controlled at this time - Related Data Home Medications Medication Instructions Recorded Confirmed Enalapril [Vasotec] 20 mg PO BID 02/01/21 10/17/21 Levothyroxine Sodium [Synthroid] 75 mcg PO HS 02/01/21 10/17/21 Terazosin [Hytrin] 2 mg PO HS 02/01/21 10/17/21 Triamterene/Hydrochlorothiazid 1 each PO QAM 02/01/21 10/17/21 [Triamterene-Hctz 37.5-25 mg Tb] carvediloL [Coreg] 12.5 mg PO QAM 02/01/21 10/17/21 Atorvastatin [Lipitor] 80 mg PO HS 03/07/21 10/17/21 Apixaban [Eliquis] 5 mg PO BID 06/29/21 10/16/21 carvediloL [Coreg] 6.25 mg PO HS 06/29/21 10/17/21 Previous Rx's Medication Instructions Recorded Clopidogrel Bisulfate [Plavix] 75 mg PO DAILY #90 tab 02/13/21 Colchicine 0.6 mg PO DAILY #15 capsule 07/02/21 Cephalexin [Keflex] 500 mg PO Q6HR 7 Days #28 cap 06/14/22 Allergies Allergy/AdvReac Type Severity Reaction Status Date / Time Milk Containing Products Allergy Nausea Verified 06/14/22 20:47 [Dairy] egg AdvReac Unknown Verified 06/14/22 20:47 gluten AdvReac Unknown Verified 06/14/22 20:47 tomato AdvReac Nausea Verified 06/14/22 20:47 tree nut [Nut] AdvReac Unknown Verified 06/14/22 20:47 wheat AdvReac SINUS Verified 06/14/22 20:47 PROBLEMS Review of Systems ROS Statement: Those systems with pertinent positive or pertinent negative responses have been documented in the HPI. ROS Other: All systems not noted in ROS Statement are negative. Past Medical History Past Medical History: Atrial Fibrillation, Hyperlipidemia, Hypertension, Sleep Apnea/CPAP/BIPAP Additional Past Medical History / Comment(s): CPAP use. History of Any Multi-Drug Resistant Organisms: C-DIFF Date of last positivie culture/infection: 15 yrs ago MDRO Source:: stool Past Surgical History: Appendectomy, Heart Catheterization, Orthopedic Surgery Additional Past Surgical History / Comment(s): Scar tissue removed from appendectomy site, bilateral knee scopes. Past Anesthesia/Blood Transfusion Reactions: No Reported Reaction Date of Last Stent Placement:: 02/12/21 Past Psychological History: No Psychological Hx Reported Smoking Status: Never smoker Past Alcohol Use History: None Reported Past Drug Use History: None Reported - Past Family History Brother(s) Family Medical History: Cancer Additional Family Medical History / Comment(s): Lung cancer. General Exam Limitations: no limitations General appearance: alert, in no apparent distress Head exam: Present: atraumatic, normocephalic, normal inspection Eye exam: Present: normal appearance, EOMI. Absent: periorbital swelling Neck exam: Present: normal inspection, full ROM Extremities exam: Present: other (Tenderness and swelling over the left great toe, nail avulsion with bleeding) Neurological exam: Present: alert, oriented X3, CN II-XII intact Psychiatric exam: Present: normal affect, normal mood Skin exam: Present: abrasion Course Vital Signs 06/14/22 20:44 Temperature 98.4 F Pulse Rate 66 Respiratory 20 Rate Blood Pressure 164/83 O2 Sat by Pulse 99 Oximetry Medical Decision Making - Medical Decision Making Was pt. sent in by a medical professional or institution (, PA, FAUCETS ASSEMBLER, urgent care, hospital, or senior care...) When possible be specific @ -No Did you speak to anyone other than the patient for history (EMS, parent, family, police, friend...)? What history was obtained from this source @ -No Did you review nursing and triage notes (agree or disagree)? Why? @ -I reviewed and agree with nursing and triage notes Were old charts reviewed (outside hosp., previous admission, EMS record, old EKG, old radiological studies, urgent care reports/EKG's, senior care records)? Report findings @ -No old charts were reviewed Differential Diagnosis (chest pain, altered mental status, abdominal pain women, abdominal pain men, vaginal bleeding, weakness, fever, dyspnea, syncope, headache, dizziness, GI bleed, back pain, seizure, CVA, palpatations, mental health, musculoskeletal)? @ -Differential Musculoskeletal Muscular strain, contusion, ligament sprain, fracture, arthritis, septic arthritis, bursitis, cellulitis, muscle spasm, nerve compression, DVT, arterial occlusion, herpes zoster, electrolyte abnormality, tumor.... This is not meant to be in all inclusive list EKG interpreted by me (3pts min.). @ -As above X-rays interpreted by me (1pt min.). @ -X-ray shows evidence of fracture to the great toe CT interpreted by me (1pt min.). @ -None done U/S interpreted by me (1pt. min.). @ -None done What testing was considered but not performed or refused? (CT, X-rays, U/S, labs)? Why? @ -None What meds were considered but not given or refused? Why? @ -None Did you discuss the management of the patient with other professionals (professionals i.e. , PA, FAUCETS ASSEMBLER, lab, RT, psych nurse, social media senior associate, coding clerk, teacher, licensing officer, special education case manager)? Give summary @ -No Was smoking cessation discussed for >3mins.? @ -No Was critical care preformed (if so, how long)? @ -No Were there social determinants of health that impacted care today? How? (Homelessness, low income, unemployed, alcoholism, drug addiction, transportation, low edu. Level, literacy, decrease access to med. care, fdc, rehab)? @ -No Was there de-escalation of care discussed even if they declined (Discuss DNR or withdrawal of care, Hospice)? DNR status @ -No What co-morbidities impacted this encounter? (DM, HTN, Smoking, COPD, CAD, Cancer, CVA, ARF, Chemo, Hep., AIDS, mental health diagnosis, sleep apnea, morbid obesity)? @ -None Was patient admitted / discharged? Hospital course, mention meds given and route, prescriptions, significant lab abnormalities, going to OR and other pertinent info. @ -Patient is a 61-year-old male presenting with chief complaint of left great toe injury this evening. On physical examination there is nail avulsion with bleeding noted. Patient is having tenderness and swelling. X-ray shows evidence of fracture. Patient is started on Keflex. Bacitracin and bulky dressing placed over the toe. Instructed to follow-up with orthopedics.Follow- up with PCP. Report back to ER with any new or worsening symptoms. Discussed return parameters and answered all questions. Patient conveyed verbal understanding and agreed to the plan. I discussed this case in detail with my attending Dr. Zaldivar Undiagnosed new problem with uncertain prognosis? @ -No Drug Therapy requiring intensive monitoring for toxicity (Heparin, Nitro, Insulin, Cardizem)? @ -No Were any procedures done? @ -No Diagnosis/symptom? @ -Toe fracture with nail avulsion Acute, or Chronic, or Acute on Chronic? @ -Acute Uncomplicated (without systemic symptoms) or Complicated (systemic symptoms)? @ -Uncomplicated Side effects of treatment? @ -No Exacerbation, Progression, or Severe Exacerbation? @ -No Poses a threat to life or bodily function? How? (Chest pain, [place], [place], pneumonia, PE, COPD, DKA, ARF, appy, cholecystitis, CVA, Diverticulitis, Homicidal, Suicidal, threat to staff... and all critical care pts) @ -No Disposition Clinical Impression: Toe fracture, Nail avulsion Disposition: HOME SELF-CARE Condition: Good Instructions (If sedation given, give patient instructions): Toe Fracture (ED), Nail Avulsion (ED) Additional Instructions: Follow up with orthopedics. Report back to ER with any new or worsening symptoms. Take medication as prescribed. Take Motrin and Tylenol as needed for pain control. Rest, ice, elevate the foot. Monitor for signs of infection, including but not limited to redness, swelling, warmth, tenderness, discharge, fever, chills. Prescriptions: Cephalexin [Keflex] 500 mg PO Q6HR 7 Days #28 cap Is patient prescribed a controlled substance at d/c from ED?: No Referrals: Zhanna Salinas MD [Primary Care Provider] - 1-2 days Cele Real DO [Doctor of Osteopathic Medicine] - 1-2 days Time of Disposition: 22:20
[2022-06-14] MEDS ORDERED: BACITRACIN OINT 1 EACH PACKET TOPICAL ONE (22:22)
[2022-06-14 23:11] VITALS: BP 149/77; PULSE 59; RESP 18
== END 2022-06-14 23:10 | disposition home or self-care (01) ==
LOC: EC 20:41
DX: S92.912A Unspecified fracture of left toe(s), initial encounter for closed fracture (principal); S91.209A Unspecified open wound of unspecified toe(s) with damage to nail, initial encounter; I48.91 Unspecified atrial fibrillation; E78.5 Hyperlipidemia, unspecified; I10 Essential (primary) hypertension; G47.30 Sleep apnea, unspecified; Z79.01 Long term (current) use of anticoagulants; Z79.899 Other long term (current) drug therapy; Z91.011 Allergy to milk products; Z91.012 Allergy to eggs; Z91.018 Allergy to other foods; Z91.010 Allergy to peanuts; W20.8XXA Other cause of strike by thrown, projected or falling object, initial encounter
CPT/HCPCS: 99283

== ENCOUNTER → 2022-10-25 | Outpatient (CLI) | payer OTHER ==
[2022-10-25 16:34] LABS: ALT 24 U/L (10-49); AST 29 U/L (14-35); Albumin 4.5 d/dL (3.8-4.9); Albumin/Globulin Ratio 1.88 Ratio (1.60-3.17); Alkaline Phosphatase 72 U/L (41-126); BUN/Creat Ratio 14.83 Ratio (12.00-20.00); Blood Urea Nitrogen 17.8 mg/dL (9.0-27.0); Calcium 9.7 mg/dL (8.7-10.3); Chloride 101 mmol/L (96-109); Chol/HDL Ratio 2.44 Ratio; Globulin 2.4 d/dL (1.6-3.3); Glucose 100 mg/dL (70-110); LDL Cholesterol,Calculated 40.3 mg/dL (0.0-131.0); Magnesium 2.3 mg/dL (1.5-2.4); Potassium 4.4 mmol/L (3.5-5.5); Sodium 139 mmol/L (135-145); Total Bilirubin 0.7 mg/dL (0.3-1.2); Total Protein 6.9 d/dL (6.2-8.2)
[2022-10-25 17:14] LABS: Basophils # (A) 0.07 X 10*3/uL (0.00-0.10); Basophils % (A) 0.9 %; Eosinophils # (A) 0.39 X 10*3/uL (0.04-0.35); Eosinophils % (A) 4.8 %; HCT 40.3 % (39.6-50.0); HGB 12.9 d/dL (13.0-17.0); Lymphocytes # (A) 1.41 X 10*3/uL (0.90-5.00); Lymphocytes % (A) 17.4 %; MCH 27.9 pg (27.0-32.0); Mean Platelet Volume 11.2 FL (9.5-12.2); Monocytes # (A) 0.89 X 10*3/uL (0.20-1.00); NRBC Per 100 WBC 0 X 10*3/uL (0.00-0.01); Neutrophils % (A) 65.5 %; Platelet Count 243 X 10*3/uL (140-440); RBC 4.63 X 10*6/uL (4.40-5.60); RDW 14.1 % (11.5-14.5); WBC 8.09 X 10*3/uL (4.50-10.00)
== END | disposition home or self-care (01) ==
LOC: LABWHC1 08:20
PROVIDERS: ATTEND Family Medicine
DX: I10 Essential (primary) hypertension (principal); I48.0 Paroxysmal atrial fibrillation; E78.2 Mixed hyperlipidemia; E03.9 Hypothyroidism, unspecified
CPT/HCPCS: 36415; 80053; 80061; 83735; 84439; 84443; 85025

== ENCOUNTER → 2023-06-04 | Outpatient (CLI) | payer OTHER ==
--- NOTE | 2023-06-04 11:33 | P.PN ---
Subjective DATE: 12/14/2023 FOLLOW UP VISIT. Patient with obstructive sleep apnea hypopnea syndrome return to sleep center for follow-up visit. Information from previous visit have been reviewed. Patient is using PAP equipment every night for the whole night, getting PAP supplies in time. The patient does not have significant problems with the mask, PAP unit and humidification. [place] sleepiness scale is 3, which is normal. I checked information from PAP unit. PAP unit pressure 5-18, average 17.9 cm H2O. Usage is 100% for more then 4 hours, average 7.8 hours per night. Leak is 0 l/m, which is in acceptable range. Apnea Hypopnea Index is 0.5, which is normal. MEDICATIONS:1. Enalapril 20 mg once a day 2. Eliquis 5 mg twice a day 3. Carvedilol 6.25 mg twice a day 4. Atorvastatin 40 mg once a day 5. Levothyroxine 75 mcg once a day 6. Montelukast 10 mg as needed 7. Furosemide 40 mg once a day 8. Terazosin 5 mg once a day During physical exam: GENERAL: A pleasant patient without any distress. VITAL SIGNS: Please see below, weight 297.8 pounds. HEENT: PERRLA, EOMI.low position of soft palate, Mallapati 3 . NECK: Supple. No JVD. LUNGS: Clear to percussion and to auscultation. Good air exchange. No wheezing or rhonchi. HEART: S1, S2 regular. ABDOMEN: Soft and nontender. Obese EXTREMITIES: No clubbing or cyanosis. DRAW HAND: Awake, alert, and oriented x3. No focal deficit. Impressions: 1. Obstructive sleep apnea-hypopnea syndrome. Patient demonstrated great compliance with treatment, benefiting from treatment. 2. Obesity, patient increased weight on 5 pounds comparing with previous visit. 3. Hypertension. 4. History of atrial fibrillation, s/p cardiac ablation in 2021. 5. Hypothyroidism. 6. Allergies. 7. Status post closing atrial septal defect in September 2021. 8. Status post appendectomy. 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 Continue using PAP equipment every night for the whole night. 2. To change air filter at least 1-2 times per month. 3. PAP unit should stay lower then position of the head. 4. Advised patient to remove all remaining water from humidifier canister daily and make it dry after each usage. Refill canister with fresh distilled water before each usage. 5. Sleep hygiene with regular time in bed for at least 8 hours. 6. Precautions related to driving. No driving if feel any sleepiness. 7. I will maintain prescription for PAP supplies including mask, tube, filters. 8. Watching and losing weight. 9. Follow up visit in 6 months or earlier if patient has any problems. Thank you very much for allowing me to participate in the management of your patient. Chavo Dawson MD, PhD, FAASM. Diplomat of [place] [employer], Sleep Medicine Board by [place] [employer] Drug Purchaser of [facility] [place] Objective - Vital Signs Vital signs: Vital Signs Temp 97.0 F L 06/04/23 11:13 Pulse 54 L 06/04/23 11:13 Resp 16 06/04/23 11:13 BP 152/70 06/04/23 11:13 Pulse Ox 97 06/04/23 11:13 FiO2
[2023-06-04 11:39] VITALS: BP 152/70; PULSE 54; RESP 16; TEMP 97
== END ==
LOC: 3 N SLEEP 10:53
PROVIDERS: ATTEND Internal Medicine
DX: G47.33 Obstructive sleep apnea (adult) (pediatric) (principal); I10 Essential (primary) hypertension; E03.9 Hypothyroidism, unspecified; E66.9 Obesity, unspecified; Z90.49 Acquired absence of other specified parts of digestive tract; Z79.890 Hormone replacement therapy; Z79.01 Long term (current) use of anticoagulants; Z79.899 Other long term (current) drug therapy; Z99.89 Dependence on other enabling machines and devices; Z91.011 Allergy to milk products; Z91.012 Allergy to eggs; Z86.79 Personal history of other diseases of the circulatory system
CPT/HCPCS: 99212

== ENCOUNTER → 2024-01-14 | Outpatient (CLI) | payer OTHER ==
[2024-01-14 10:43] VITALS: BP 145/80; PULSE 56; RESP 18; TEMP 97.7
--- NOTE | 2024-01-14 11:11 | P.PROGSL ---
Subjective DATE: 01/22/2024 FOLLOW UP VISIT. Patient with obstructive sleep apnea hypopnea syndrome return to sleep center for follow-up visit. Information from previous visit have been reviewed. Patient is using PAP equipment every night for the whole night, getting PAP supplies in time. The patient does not have significant problems with the mask, PAP unit and humidification. [place] sleepiness scale is 2, which is normal. I checked information from PAP unit. PAP unit pressure 5-18, average 17.6 cm H2O. Usage is 100% for more then 4 hours, average 7.5 hours per night. Leak is perfect 0 l/m. Apnea Hypopnea Index is 0.4, which is absolutely normal. MEDICATIONS have been reviewed, please see below. During physical exam: GENERAL: A pleasant patient without any distress. VITAL SIGNS: Please see below, weight is 302 lbs. HEENT: PERRLA, EOMI.low position of soft palate, Mallapati 3. NECK: Supple. No JVD. LUNGS: Clear to percussion and to auscultation. Good air exchange. No wheezing or rhonchi. HEART: S1, S2 regular. ABDOMEN: Soft and nontender. Obese EXTREMITIES: No clubbing or cyanosis. CORPORATE STATISTICAL FINANCIAL ANALYST: Awake, alert, and oriented x3. No focal deficit. Impressions: 1. Obstructive sleep apnea-hypopnea syndrome. Patient demonstrated great compliance with treatment, benefiting from treatment. 2. Obesity, BMI 43.0, patient increased weight 25 pounds comparing with previous visit. 3. History of atrial fibrillation, status post cardiac ablation 2021. 4. Hypertension. 5. Hypothyroidism. 6. Allergies. 7. Status post closing atrial septal defect in September 2021. 8. Status post appendectomy. 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 Plan: 1. Continue using PAP equipment every night for the whole night. 2. Sleep hygiene with regular time in bed for at least 7.5-8 hours 3. PAP unit should stay lower then position of the head. 4. Advised patient to remove all remaining water from humidifier canister daily and make it dry after each usage. Refill canister with fresh distilled water before each usage. 5. Watching and losing weight. 6. Precautions related to driving. No driving if feel any sleepiness. 7. I will maintain prescription for PAP supplies including mask, tube, filters. 8. Follow up visit in 8 months or earlier if patient has any problems. Thank you very much for allowing me to participate in the management of your patient. Chavo Dawson MD, PhD, FAASM. Diplomat of [place] [employer], Sleep Medicine Board by [place] [employer] Cardiac Cath Lab Radiology Technologist of [facility] Objective - Vital Signs Vital Signs: Vital Signs Temp 97.7 F 01/14/24 10:41 Pulse 56 L 01/14/24 10:41 Resp 18 01/14/24 10:41 BP 145/80 01/14/24 10:41 Pulse Ox 97 01/14/24 10:41 FiO2 Intake & Output 01/13/24 01/14/24 01/14/24 18:59 06:59 18:59 Weight 136.985 kg Home Medications: Home Medications Medication Instructions Recorded Confirmed Type Enalapril [Vasotec] 20 mg PO BID 02/01/21 01/14/24 History Levothyroxine Sodium [Synthroid] 75 mcg PO HS 02/01/21 01/14/24 History Terazosin [Hytrin] 5 mg PO HS 02/01/21 01/14/24 History Triamterene/Hydrochlorothiazid 1 each PO QAM 02/01/21 01/14/24 History [Triamterene-Hctz 37.5-25 mg Tb] carvediloL [Coreg] 12.5 mg PO QAM 02/01/21 01/14/24 History Clopidogrel Bisulfate [Plavix] 75 mg PO DAILY #90 tab 02/13/21 10/17/21 Rx Atorvastatin [Lipitor] 40 mg PO HS 03/07/21 01/14/24 History Apixaban [Eliquis] 5 mg PO BID 06/29/21 01/14/24 History carvediloL [Coreg] 6.25 mg PO HS 06/29/21 01/14/24 History Colchicine 0.6 mg PO DAILY #15 capsule 07/02/21 10/17/21 Rx Cephalexin [Keflex] 500 mg PO Q6HR 7 Days #28 cap 06/14/22 Rx Aspirin 81 mg PO DAILY 01/14/24 01/14/24 History Furosemide [Lasix] 40 mg PO DAILY 01/14/24 01/14/24 History Montelukast [Singulair] 10 mg PO DAILY 01/14/24 01/14/24 History Potassium Chloride ER [K-Dur 20] 20 meq PO DAILY 01/14/24 01/14/24 History
== END ==
LOC: 3 N SLEEP 10:21
PROVIDERS: ATTEND Internal Medicine
DX: G47.33 Obstructive sleep apnea (adult) (pediatric) (principal); E66.9 Obesity, unspecified; I10 Essential (primary) hypertension; E03.9 Hypothyroidism, unspecified; I48.91 Unspecified atrial fibrillation; Z98.890 Other specified postprocedural states; Z90.49 Acquired absence of other specified parts of digestive tract; Z68.41 Body mass index [BMI] 40.0-44.9, adult; Z99.89 Dependence on other enabling machines and devices; Z91.011 Allergy to milk products; Z91.012 Allergy to eggs; Z91.018 Allergy to other foods; Z79.02 Long term (current) use of antithrombotics/antiplatelets; Z79.899 Other long term (current) drug therapy; Z79.890 Hormone replacement therapy; Z79.01 Long term (current) use of anticoagulants
CPT/HCPCS: 99212

== ENCOUNTER → 2024-06-03 | Outpatient (CLI) | payer MEDICARE, OTHER ==
[2024-06-03 11:06] VITALS: BP 113/67; PULSE 102; RESP 16; TEMP 97.8
--- NOTE | 2024-06-03 11:24 | P.PROGSL ---
Subjective DATE: 06/03/2024 FOLLOW UP VISIT. Patient with obstructive sleep apnea hypopnea syndrome return to sleep center for follow-up visit. Information from previous visit have been reviewed. Patient is using PAP equipment every night for the whole night, getting PAP supplies in time. The patient does not have significant problems with the mask, PAP unit and humidification. [place] sleepiness scale is 3, which is normal. I checked information from PAP unit. PAP unit pressure 5-18, average 17.5 cm H2O. Usage is 100% for more then 4 hours, average 7.75 hours per night. Leak is 0 l/m, which is in perfect range. Apnea Hypopnea Index is 0.33, which is normal. MEDICATIONS have been reviewed, please see below. During physical exam: GENERAL: A pleasant patient without any distress. VITAL SIGNS: Please see below, weight is 283 lbs. HEENT: PERRLA, EOMI.low position of soft palate, Mall[place]ati 3. NECK: Supple. No JVD. LUNGS: Clear to percussion and to auscultation. Good air exchange. No wheezing or rhonchi. HEART: S1, S2 irregular. ABDOMEN: Soft and nontender. Obese EXTREMITIES: No clubbing or cyanosis. MACHINE PRECISION ETCHER: Awake, alert, and oriented x3. No focal deficit. Impressions: 1. Obstructive sleep apnea-hypopnea syndrome. Patient demonstrated great compliance with treatment, benefiting from treatment. 2. Obesity, BMI 40.6, patient lost 19 pounds since previous visit. 3. Atrial fibrillation, status post cardiac ablation 2021. 4. Hypertension. 5. Hypothyroidism. 6. Allergies. 7. Status post closing of atrial septal defect in September 2021. 8. Status post appendectomy. 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 Plan: 1. Continue using PAP equipment every night for the whole night. 2. Sleep hygiene with regular time in bed for at least 7.5-8 hours 3. PAP unit should stay lower then position of the head. 4. Advised patient to remove all remaining water from humidifier canister daily and make it dry after each usage. Refill canister with fresh distilled water before each usage. 5. Watching and continue losing weight. 6. Precautions related to driving. No driving if feel any sleepiness. 7. I will maintain prescription for PAP supplies including mask, tube, filters. 8. Follow up visit in 8 months or earlier if patient has any problems. Thank you very much for allowing me to participate in the management of your patient. Chavo Dawson MD, PhD, FAASM. Diplomat of [place] [employer], Sleep Medicine Board by [place] [employer] [facility] [place] Objective - Vital Signs Vital Signs: Vital Signs Temp 97.8 F 06/03/24 11:06 Pulse 102 H 06/03/24 11:06 Resp 16 06/03/24 11:06 BP 113/67 06/03/24 11:06 Pulse Ox 97 06/03/24 11:06 FiO2 Intake & Output 06/02/24 06/03/24 06/03/24 18:59 06:59 18:59 Weight 128.367 kg Home Medications: Home Medications Medication Instructions Recorded Confirmed Type Enalapril [Vasotec] 20 mg PO BID 02/01/21 06/03/24 History Levothyroxine Sodium [Synthroid] 75 mcg PO HS 02/01/21 06/03/24 History Terazosin [Hytrin] 5 mg PO HS 02/01/21 06/03/24 History Triamterene/Hydrochlorothiazid 1 each PO QAM 02/01/21 06/03/24 History [Triamterene-Hctz 37.5-25 mg Tb] carvediloL [Coreg] 12.5 mg PO QAM 02/01/21 01/14/24 History Clopidogrel Bisulfate [Plavix] 75 mg PO DAILY #90 tab 02/13/21 10/17/21 Rx Atorvastatin [Lipitor] 40 mg PO HS 03/07/21 06/03/24 History Apixaban [Eliquis] 5 mg PO BID 06/29/21 06/03/24 History carvediloL [Coreg] 6.25 mg PO BID 06/29/21 06/03/24 History Colchicine 0.6 mg PO DAILY #15 capsule 07/02/21 10/17/21 Rx Cephalexin [Keflex] 500 mg PO Q6HR 7 Days #28 cap 06/14/22 Rx Aspirin 81 mg PO DAILY 01/14/24 06/03/24 History Furosemide [Lasix] 40 mg PO DAILY 01/14/24 06/03/24 History Montelukast [Singulair] 10 mg PO DAILY 01/14/24 06/03/24 History Potassium Chloride ER [K-Dur 20] 20 meq PO DAILY 01/14/24 06/03/24 History
== END ==
LOC: 3 N SLEEP 10:52
PROVIDERS: ATTEND Internal Medicine
DX: G47.33 Obstructive sleep apnea (adult) (pediatric) (principal); E66.9 Obesity, unspecified; I48.91 Unspecified atrial fibrillation; I10 Essential (primary) hypertension; E03.9 Hypothyroidism, unspecified; Z68.41 Body mass index [BMI] 40.0-44.9, adult; Z98.890 Other specified postprocedural states; Z87.74 Personal history of (corrected) congenital malformations of heart and circulatory system; Z90.49 Acquired absence of other specified parts of digestive tract; Z91.011 Allergy to milk products; Z91.012 Allergy to eggs; Z91.018 Allergy to other foods
CPT/HCPCS: 99212